=== PATIENT | male | born 1955 | race Two or more races ===

== ENCOUNTER 2016-10-16 11:04 | Outpatient (CLI) | payer MEDICARE, MEDICAID ==
--- NOTE | 2016-10-17 11:40 | Diagnostic Imaging Report ---
APPROVED REPORT CPT Code: 86758 Symptoms Claudication : Risk Factors Smoking: RIGHT LEG: Common femoral artery waveform analysis is within normal limits at rest. Color flow duplex sonography reveals an occlusion in the mid superficial femoral artery. Reconstitution is noted at the distal superficial femoral artery. The popliteal artery is patent. The tibioperoneal trunk was not well visualized. The distal posterior tibial, anterior tibial and dorsalis pedis arteries are patent. Doppler waveform analysis is monophasic, consistent with moderate ischemia at rest. LEFT LEG: Common femoral artery waveform analysis is within normal limits at rest. Color flow duplex sonography reveals an occlusion in the proximal superficial femoral artery. Reconstitution is noted at the distal superficial femoral artery. The popliteal artery and the tibioperoneal trunks are patent. The dorsalis pedis artery was not well visualized. The proximal posterior tibial and distal anterior tibial arteries are partially occluded. The distal posterior tibial and mid anterior tibial arteries are patent. Doppler waveform analysis is monophasic, consistent with severe ischemia at rest.
== END 2016-10-16 13:04 | disposition home or self-care (01) ==
LOC: VAS 11:04
DX: I87.8 Other specified disorders of veins (principal)
CPT/HCPCS: 93925

== ENCOUNTER 2017-01-15 13:00 | Outpatient (CLI) | payer MEDICARE, MEDICAID ==
--- NOTE | 2017-01-15 16:09 | Diagnostic Imaging Report ---
Indication: Osteopenia Technique: Transaxial images of the L1, L2, and L3 vertebral bodies obtained in a Siemens sensation [address] Regions of interest were drawn for both cortical and medullary portions of the bone. Average bone then calculated. Total Dose length Product (DLP): [address] Dose Index Volume (CTDIvol): .42,2.96,3.02:3.06 mGy Findings: The patient's bone mineral density is 127.1 mg Ca-ORNELAS/ml. The T score is -1.8 this means that the patient's average bone mineral density is -1.8 standard deviations less than a typical 20-year-old female. The patient's Z score is 0.85. This means that the patient's average bone mineral density is 0.85 standard deviations greater than age-matched controls. Impression: Bone mineral density is 10-25% below that of young normal females. This patient is considered osteopenic by WHO criteria. Insufficiency fracture risk is moderate. The CT scanner at [facility] is accredited by the [employer] and the scans are performed using dose optimization techniques as appropriate to a performed exam including Automatic Exposure control.
--- NOTE | 2017-01-15 16:09 | Diagnostic Imaging Report ---
Indication: Osteopenia Technique: Transaxial images of the L1, L2, and L3 vertebral bodies obtained in a Siemens sensation [address] Regions of interest were drawn for both cortical and medullary portions of the bone. Average bone then calculated. Total Dose length Product (DLP): [address] Dose Index Volume (CTDIvol): .42,2.96,3.02:3.06 mGy Findings: The patient's bone mineral density is 127.1 mg Ca-ORNELAS/ml. The T score is -1.8 this means that the patient's average bone mineral density is -1.8 standard deviations less than a typical 20-year-old female. The patient's Z score is 0.85. This means that the patient's average bone mineral density is 0.85 standard deviations greater than age-matched controls. Impression: Bone mineral density is 10-25% below that of young normal females. This patient is considered osteopenic by WHO criteria. Insufficiency fracture risk is moderate. The CT scanner at [facility] is accredited by the [employer] and the scans are performed using dose optimization techniques as appropriate to a performed exam including Automatic Exposure control.
== END 2017-01-15 15:00 | disposition home or self-care (01) ==
LOC: CAT 13:00
DX: M85.88 Other specified disorders of bone density and structure, other site (principal)
CPT/HCPCS: 77078